=== PATIENT | female | born 1960 ===

== ENCOUNTER 2019-07-01 07:00 | Day surgery (SDC) | payer OTHER ==
[2019-07-02] MEDS ORDERED: ESTAZOLAM2 MG (22:35)
== END 2019-07-01 13:20 | disposition home or self-care (01) ==
LOC: AMB-ENDOS 07:00
PROVIDERS: ATTEND Surgery
DX: D12.4 Benign neoplasm of descending colon (principal)

== ENCOUNTER 2019-07-02 22:25 | Emergency (ER) | payer OTHER ==
[~2019-07-02] VITALS: Ht 160 cm; Wt 70.3 kg
[2019-07-02] MEDS ORDERED: ESTAZOLAM2 MG (22:35)
[2019-07-03] MEDS ORDERED: LEVSIN/SL0.125 MG SL (03:17)
[2019-07-03] MEDS ORDERED: INTESTINEX680 M1 PO (03:17)
== END 2019-07-03 03:28 | disposition home or self-care (01) ==
LOC: ER 22:25
DX: G89.18 Other acute postprocedural pain (principal); R10.32 Left lower quadrant pain; K91.841 Postprocedural hemorrhage of a digestive system organ or structure following other procedure; Y83.8 Other surgical procedures as the cause of abnormal reaction of the patient, or of later complication, without mention of misadventure at the time of the procedure; Y92.89 Other specified places as the place of occurrence of the external cause